=== PATIENT | male | born 1970 | race Caucasian/White ===

== ENCOUNTER 2024-10-03 08:57 | Day surgery (SDC) | payer MEDICAID ==
[2024-09-17 14:17] LABS: BASOPHILS % (AUTO) 0.8 % (0-1); EOSINOPHILS # (AUTO) 0.1 X10'3 (0-0.9); EOSINOPHILS % (AUTO) 1.8 % (0-6); LYMPHOCYTES # (AUTO) 1.7 X10'3 (1.1-4.8); LYMPHOCYTES % (AUTO) 43.4 % (21-51); MEAN CORPUSCULAR HGB CONC 33.6 g/dL (33.0-36.5); MEAN CORPUSCULAR VOLUME 89.1 FL (78-98); MONOCYTES # (AUTO) 0.5 X10'3 (0-0.9); MONOCYTES % (AUTO) 11.9 % (2-12); NEUTROPHILS # (AUTO) 1.6 X10'3 (1.8-7.7); NEUTROPHILS % (AUTO) 42.1 % (42-75); PRE OP HEMATOCRIT 47.1 % (42.0-52.0); PRE OP HEMOGLOBIN 15.8 g/dL (14.0-17.9); PRE OP PLATELET COUNT 180 X10'3 (140-440); PRE OP WHITE BLOOD COUNT 3.8 10'3 (4.8-10.8); RED BLOOD COUNT 5.28 X10'6 (4.70-6.10)
[2024-09-17 14:34] LABS: ALBUMIN/GLOBULIN RATIO 1.1 (1.1-1.5); ALKALINE PHOSPHATASE 54 IU/L (46-116); BLOOD UREA NITROGEN 15 MG/DL (7-18); BUN/CREATININE RATIO 16.5 (10.0-20.0); CALCIUM 8.5 MG/DL (8.5-10.1); CHLORIDE 107 MMOL/L (99-107); CREATININE 0.91 MG/DL (0.60-1.10); PRE OP ALT 30 U/L (30-65); PRE OP ANION GAP 9 (8-16); PRE OP AST 19 U/L (10-37); PRE OP BILIRUB, TOTAL 0.9 MG/DL (0.0-1.0); PRE OP GLUCOSE 105 MG/DL (70-104); PRE OP POTASSIUM 3.9 MMOL/L (3.4-5.1); PRE OP SODIUM 145 MMOL/L (135-145); TOTAL CARBON DIOXIDE 29.5 MMOL/L (24-32); TOTAL PROTEIN 7.7 G/DL (6.4-8.2); eGFR 86 ML/MIN
[~2024-10-03] VITALS: Ht 177.8 cm; Wt 73.5 kg
[2024-10-03] VITALS (14 sets, daily range): BP systolic 113–163; BP diastolic 68–107; PULSE 46–82; RESP 11–16; TEMP 97.6; O2SAT 98–100
[2024-10-03] MEDS: ceFAZolin 2gm in dextrose, iso 50 ML IV ONE ×2 (08:28→09:33)
[~2024-10-03 08:57] MED LIST: OMEP20CA16; ringers solution, lacted 1,000 ML IV SCH
[2024-10-03 10:11] LABS: ISTAT CREATININE 1.3 mg/dL (0.8-1.3); ISTAT IONIZED CALCIUM 1.21 mmol/L (1.03-1.32); ISTAT K 4.2 mmol/L (3.5-5.1); POC BUN/CREATININE RATIO 15.4 (5.4-32.0)
[2024-10-03] MEDS: famotidine 20mg tablet PO ONE ×2 (10:15)
[2024-10-03] MEDS ORDERED: BUPIVAcaine 2.5mg/ml inj 50ml vial (contains preservative) ONE (11:30)
[2024-10-03] MEDS ORDERED: LIDOcaine 1% 30ml preserv. free vial ONE (11:30)
[2024-10-03] MEDS ORDERED: sevoflurane 250ml liquid IH ONE (11:45)
[2024-10-03] MEDS ORDERED: midazolam 1 mg/ML 2ml injection ONE (11:52)
[2024-10-03] MEDS ORDERED: rocuronium 10mg/ml inj IV ONE (11:58)
[2024-10-03] MEDS ORDERED: LIDOcaine 2% (20mg/ml) 5ml vial ONE (11:58)
[2024-10-03] MEDS ORDERED: ondansetron/PF 4mg/2ml inj ONE (11:58)
[2024-10-03] MEDS ORDERED: propofol inj 20 ML IV ONE (11:58)
[2024-10-03] MEDS ORDERED: acetaminophen 1,000mg/100ml IV 100 ML IV ONE (11:59)
[2024-10-03] MEDS ORDERED: fentaNYL/PF 50MCG/1 ML 2ML syringe ONE (12:01)
[2024-10-03] MEDS ORDERED: morphine 2 MG/ML inj. syringe IV PRN (12:20)
[2024-10-03] MEDS ORDERED: ringers solution, lacted 1,000 ML IV SCH (12:20)
[2024-10-03] MEDS ORDERED: fentaNYL/PF 50MCG/1 ML 2ML syringe IV PRN ×2 (12:20)
[2024-10-03] MEDS ORDERED: labetalol 20mg/4ml (5mg/ml) syringe IV PRN (12:20)
[2024-10-03] MEDS ORDERED: hydrALAZINE 20mg/ml inj. IV PRN (12:20)
[2024-10-03] MEDS ORDERED: morphine 4 MG/ML inj SYRINge IV PRN (12:20)
[2024-10-03] MEDS ORDERED: glycopyrrolate 0.2mg/ml inj ONE (12:42)
[2024-10-03] MEDS ORDERED: neostigmine methylsulfate 1 MG/ML 10ml vial ONE (12:42)
[2024-10-03] MEDS ORDERED: HYDROcodone/acetaminophen 5mg/325mg tablet PO PRN (13:30)
[2024-10-03] MEDS: ondansetron/PF 4mg/2ml inj IV PRN (14:46)
== END 2024-10-03 15:29 | disposition home or self-care (01) ==
LOC: PAS 08:57
PROVIDERS: ATTEND Surgery
DX: K40.90 Unilateral inguinal hernia, without obstruction or gangrene, not specified as recurrent (principal); K21.9 Gastro-esophageal reflux disease without esophagitis; Z79.899 Other long term (current) drug therapy; Z98.890 Other specified postprocedural states; Z88.1 Allergy status to other antibiotic agents
CPT/HCPCS: 36415; 49650; 80047; 80053; 85025; 93005; C1781; J0131; J0690; J2003; J2250; J2405; J2704; J2710; J3010; J3490; J7030; J7120; S2900; Z7506; Z7508; Z7512; A4215; A4618; J1100